=== PATIENT | female | born 1990 | race Two or more races ===

== ENCOUNTER 2022-02-01 01:33 | Emergency (ER) | payer OTHER ==
[~2022-02-01] VITALS: Ht 170.2 cm; Wt 124.0 kg
[2022-02-01 01:54] VITALS: BP 0/0
[2022-02-01] MEDS ORDERED: OXYC-490 PO (05:43)
[2022-02-01] MEDS ORDERED: BENZ100C68 PO (05:44)
[2022-02-01] MEDS ORDERED: METH-659 PO (05:47)
[2022-02-01] MEDS ORDERED: HYDR-4527 PO (05:47)
[2022-02-01] MEDS ORDERED: NORT10 PO (05:47)
[2022-02-01] MEDS ORDERED: LEVE500T8 PO (05:48)
[2022-02-01] MEDS ORDERED: GABA-1181 PO (05:49)
[2022-02-01] MEDS ORDERED: ESCI5SOL2 PO (05:49)
[2022-02-01] MEDS ORDERED: NALO4SPR NASAL (05:50)
[2022-02-01] MEDS ORDERED: ETHI1TAB30 PO (05:53)
== END 2022-02-01 06:15 ==
LOC: EDBD 01:35 → EMS 01:35
DX: I46.9 Cardiac arrest, cause unspecified (principal); G89.29 Other chronic pain; M54.50 Low back pain, unspecified
CPT/HCPCS: 92950; 93005; 99285